=== PATIENT | female | born 1950 | race Caucasian/White ===

== ENCOUNTER 2017-01-24 07:41 | Inpatient (IN) | payer MEDICARE, BC, OTHER ==
--- NOTE | ~2017-01-24 | DS ---
Discharge Summary [facility] [address] [place]. [address] NAME: UMM ROSA : 50 STATUS : DIS Tani PAT#: [id number] AGE: 66 ADM/REG DATE : 01/24/17 MR#: [id number] REPORT SERV DATE: 01/27/17 DICTATED BY: SOLITARIO MARIA DATE: 01/26/17 REPORT STATUS : Draft TRANSCRIBED BY: MODL DATE: 01/26/17 ADMISSION DATE: 01/24/2017 DISCHARGE DATE: 01/26/2017 DISCHARGE DIAGNOSES: 1. Acute on chronic systolic heart failure with ejection fraction 40%. 2. Acute chronic obstructive pulmonary disease exacerbation in the setting of continued tobacco use of 1-2 packs per day. 3. Anemia and thrombocytopenia that is stable. 4. Diabetes type 2, hemoglobin A1c 6.2. 5. Hypertension. 6. Chronic pain syndrome, lumbago and cervicalgia with recent outpatient workup by Dr. Diaz to follow up with him. 7. Diabetes type 2, has neuropathy attached to it as well. 8. Pneumonia has been ruled out. DISCHARGE MEDICATIONS: Aspirin 81 mg daily; Lipitor 40 mg at bedtime; Bumex 1 mg p.o. twice a day, prescription written for this, this is an increased dose; Coreg 6.25 mg twice a day; doxycycline 100 mg twice a day for three more days; Zantac 300 mg daily; gabapentin 300 mg three times a day; Lantus insulin 10 units subcutaneously at bedtime; Imdur ER 120 mg daily; lisinopril 20 mg daily, prescription written; Ativan 1 mg twice a day; MS Contin sustained release 15 mg twice a day; Prilosec 40 mg daily; Paxil 40 mg daily; Klor-Con 20 mEq daily; Glucophage 1000 mg twice a day; Ventolin albuterol inhaler 1 to 2 puffs every four hours p.r.n. for shortness of breath; prednisone 40 mg daily for three more days, prescription written for this; Percocet 10/325 one tablet every six hours p.r.n. for pain; Phenergan 25 mg every 12 hours p.r.n. for nausea; Plavix 75 mg daily; nitroglycerin sublingual tablets 0.4 mg p.r.n. for chest pain. HISTORY OF PRESENT ILLNESS: This is a 66-year-old white female who presented to [facility] Emergency Room with complaints of shortness of breath and neck pain. Please see initial H and P of Dr. Naldo Owens as patient was admitted to Hospitalist Service for further evaluation and treatment. Initially, lab work was ordered and followed. She was placed on empiric antibiotic therapy for concern of pneumonia and she was monitored closely. HOSPITAL COURSE: I began seeing the patient the following day on 01/25/2017 where in review of lab work, white blood cells dropped to 5. She had a procalcitonin level of less than 0.05 and she had been afebrile. She was feeling a little better, still complaining of some neck and back pain. Her antibiotics were deescalated. Her steroids were weaned. She was counseled on smoking cessation. Her lisinopril dosage was increased as she did have some higher blood pressures in the 160 systolically and a BNP lab was checked that day came back elevated at 1124. Her diuretic dose was increased to Bumex 1 mg twice a day and she began to improve in regard to her shortness of breath and has diuresed and her kidney function has remained stable. Reviewing previous records, last echocardiogram in 11/22/2016 showed ejection fraction of 40% which is a slight decrease from her prior echoes, EF of 45%, and it also showed some moderate mitral regurg. Further testing revealed negative urine Strep. Urine Legionella was negative. Blood cultures were negative as well. So given her clinical Discharge Summary [address] [address] NAME: UMM ROSA MARIA DEL CARMEN : 50 STATUS : DIS Tani PAT#: [id number] AGE: 66 ADM/REG DATE : 01/24/17 MR#: [id number] REPORT SERV DATE: 01/27/17 DICTATED BY: SOLITARIO MARIA DATE: 01/26/17 REPORT STATUS : Draft TRANSCRIBED BY: MODL DATE: 01/26/17 improvement on 01/26, she was felt safe for discharge home with the medication adjustments as described above. She will need to follow up with her dental surgeon, Dr. Mooney in 10-14 days. Followup with her primary care in three days. I have advised her to recheck a CBC and BMP at that time and as of this dictation, there is a Hemoccult that is pending and if it is positive, we will establish a GI outpatient followup for this patient as well. Also further review of her orthostatics were within normal limits and she ambulated in the hallway on room air, was 91-92%. She states that she was having some hypoglycemic episodes at home and had not been taking her insulin. So as stated above we have decreased that overall Lantus to 10 units a day and I have instructed her to take it at a lower dose. The patient is in agreement with this plan going forward. She will also reschedule her followup with Dr. Diaz as apparently the appointment for followup with him was today. Questions were answered at bedside. Please note that greater than 30 minutes was spent on this discharge for medication teaching, followup planning, and further disposition. CSC/MODL Solitario Maria NP / [id number] CC: Naldo Owens MD
--- NOTE | ~2017-01-24 | HP ---
History And Physical [place] [id number] [facility] [place]. [address] NAME: UMM ROSA : 50 STATUS : ADM Tani PAT#: [id number] AGE: 66 ADM/REG DATE : 01/24/17 MR#: [id number] REPORT SERV DATE: 01/24/17 DICTATED BY: BEATRICE DE LOS SANTOS DATE: 01/24/17 REPORT STATUS : Draft TRANSCRIBED BY: MODL DATE: 01/24/17 DATE OF ADMISSION: 01/24/2017 HISTORY OF PRESENTING ILLNESS: The patient is a 66-year-old female with a history of presumable COPD, hypertension, diabetes type 2, coronary artery disease, status post stent placement, who presented to the emergency room with a complaint of shortness of breath. Of note, limited history gotten from the patient as she was very lethargic at the time of my examination, however, further history obtained from the [employer] and discussion with ED physician. Briefly, upon presentation to the emergency room, the patient was complaining of severe neck pain, also shortness of breath. Preliminary workup included an ABG which noted significant hypercapnia. Repeat ABG showed some improvement in her hypercapnia. At the time of my interview, the patient stated that yesterday, she had been in severe pain, however, she was feeling at her baseline respiratory status. She said she had several imaging and was evaluated, not clear which physician evaluated, however, she states that she did get an MRI and the conclusion was that she would need further surgery for her neck pain. At this point, I am unable to corroborate that story. However, she states that her shortness of breath began last night, states that upon awakening this morning, it was worse, so she decided to present to the emergency room. Also in the emergency room, workup also included a chest x-ray, which noted some infiltrates in the lower right lung field concerning for pneumonia. The patient was subsequently admitted for observation on the Hospitalist Service. I was unable to perform a review of system as the patient was very lethargic and was sleeping at the time of my evaluation. PAST MEDICAL HISTORY: 1. Coronary artery disease, status post drug-eluting stent placed in 03/2016. 2. Hypertension. 3. Diabetes. 4. Anxiety. 5. Chronic pain. 6. History of chronic systolic heart failure. PAST SURGICAL HISTORY: 1. Cholecystectomy. 2. Hysterectomy. 3. Neck and back surgery. FAMILY HISTORY: Significant for coronary artery disease. SOCIAL HISTORY: The patient reports that she started smoking about two years ago, smokes about one-half packs per day. ALLERGIES: THE PATIENT IS ALLERGIC TO CODEINE, DEMEROL, IV CONTRAST, MEPERIDINE, NALBUPHINE, SULFA, AND CODEINE. History And Physical [address] [address] NAME: UMM ROSA : 50 STATUS : ADM Tani PAT#: [id number] AGE: 66 ADM/REG DATE : 01/24/17 MR#: [id number] REPORT SERV DATE: 01/24/17 DICTATED BY: BEATRICE DE LOS SANTOS DATE: 01/24/17 REPORT STATUS : Draft TRANSCRIBED BY: UMM DATE: 01/24/17 MEDICATIONS: Home medications were reviewed and all medications were continued. PHYSICAL EXAMINATION: VITAL SIGNS: On presentation, blood pressure 187/94 with a pulse of 81, respirations 22, O2 saturation 97% on room air. GENERAL: The patient lying in bed, appears very lethargic with normal respiratory effort. HEENT: Normocephalic, atraumatic. Extraocular motors intact. Oral mucosa dry. NECK: Trachea midline and symmetric. No thyromegaly noted. CHEST: Nontender to palpation. CARDIOVASCULAR: Regular rate and rhythm, S1, S2. No murmurs, rubs, or gallops. LUNGS: Normal respiratory effort noted, decreased breath sound on the right lower lung lobe. ABDOMEN: Midline scar noted, appears well healed. Positive bowel sounds. Nontender. Nondistended. No masses palpated. EXTREMITIES: No cyanosis. No clubbing. No edema. NEURO: The patient was alert and oriented, however, appeared very lethargic. LABORATORY DATA: WBC 12.6, hemoglobin 9.2, hematocrit 31.2 with an MCV of 81.5. Sodium 147, potassium 4.3, chloride 106, bicarb 32, BUN 14, creatinine 0.75 with a GFR of 83, glucose 130. IMAGING: Chest radiograph impression: Bibasilar subsegmental atelectasis with slight volume loss in the right lung, stable thoracic spine DJD. ASSESSMENT AND PLAN: 1. Right community acquired pneumonia, imaging concerning for right lower lobe new infiltrate, placed the patient on azithromycin and Rocephin. 2. Chronic obstructive pulmonary disease exacerbation. We will start the patient on 40 mg IV Solu-Medrol, DuoNeb, supplemental oxygen. 3. Heart failure with reduced EF, last EF 40%. The patient currently appears euvolemic on exam. We will place patient on fluid restriction. 4. Hypertension, uncontrolled, we will restart patient on home medications and titrate as necessary. 5. Diabetes type 2, recent A1c not known, her last A1c is 6.3, however, on her home medication, the patient is currently on management for diabetes with metformin and glargine insulin. PLAN: 1. We will check hemoglobin A1c. We will continue her home glargine, will discontinue metformin, place patient on NovoLog 5 units premeal t.i.d., and level 2 sliding scale. 2. Coronary artery disease, status post stent placement. We will continue home medication. The patient already on high-intensity statin therapy. 3. Chronic pain, we will continue home medications. 4. The patient's code status will remain full at this time. 5. DVT prophylaxis will be with subcu heparin. History And Physical [address] [address] NAME: UMM ROSA : 50 STATUS : ADM Tani PAT#: [id number] AGE: 66 ADM/REG DATE : 01/24/17 MR#: [id number] REPORT SERV DATE: 01/24/17 DICTATED BY: BEATRICE DE LOS SANTOS DATE: 01/24/17 REPORT STATUS : Draft TRANSCRIBED BY: UMM DATE: 01/24/17 LUIS/UMM Beatrice De Los Santos MD / [id number] CC: Beatrice De Los Santos MD
[~2017-01-24 07:41] MED LIST: *UNABLE1; ASAB PO; ASABAYER PO; ATV1 PO; BLOOD THINNER PO; BP MEDICATION; BRILINTA90 MG PO; BUM1 PO; CELEXA40 MG PO; CENTRUM PO; CIP2 PO; CITALOPRAM PO; COREG25 PO; COREG6 PO; DSS PO; EFFIENT10 PO; EMBEDA1 CAP PO; GLIPIZIDE PO; GLUCOPHAGE1000 MG PO; GLUCOTRO10 PO; HALF81 PO; HYDROCHLOROT25 MG PO; IMDUR120 PO; INHALER RX; ISORDIL10 PO; KLOR-CON M2020 MEQ PO; L40 PO; LANTUS SC; LANTUSCART SC; LEVAQUIN750 MG PO; LIPITOR20 PO; LIPITOR40 PO; LISINOPRIL40 MG PO; LYRICA50 PO; METFORMIN PO; MSCONT15 PO; NEUR100 PO; NEUR300 PO; NEXIUM40 PO; NITROSTAT0.4 MG SL; PERCOCET 10/3251 TAB PO; PERCOCET1 TA4 PO; PLAVIX PO; PR25 PO; PRAVAC PO; PREM625 PO; PRILOSEC40 MG PO; PRIN10 PO; PRIN20 PO; PROZAC PO; SUCR PO; VASOTEC5 PO; VENTOLIN HFA INH; ZANTAC300 MG PO; ZOFRAN4 PO; [UNRECOGNIZED DRUG - REMARK] PO
[2017-01-24 08:04] LABS: BASOPHILS 0.2 %; BASOPHILS ABSOLUTE 0.02 10/3/uL (0.0-0.16); EOSINOPHILS 0.5 %; EOSINOPHILS ABSOLUTE 0.06 10/3/uL (0.0-0.53); ER CBC TAT 0 Hrs 13 Mins; HEMATOCRIT 31.2 % (36.0-48.0); HEMOGLOBIN 9.2 g/dL (12.0-16.0); IMMATURE GRANULOCYTES 0.2 %; IMMATURE GRANULOCYTES ABSOLUTE 0.03 10/3/uL (0.0-0.11); LYMPHOCYTES 18.1 %; LYMPHOCYTES ABSOLUTE 2.27 10/3/uL (0.67-4.30); MEAN CORPUS HGB CONC 29.5 g/dL (32.0-36.0); MEAN CORPUSCULAR VOLUME 81.5 fL (80-100); MONOCYTES 6.7 %; MONOCYTES ABSOLUTE 0.84 10/3/uL (0.21-1.20); NEUTROPHILS 74.3 %; NEUTROPHILS ABSOLUTE 9.35 10/3/uL (2.02-8.40); PLATELET COUNT 163 10/3/uL (150-400); RBC DISTRIBUTION WIDTH 17.1 % (12.0-16.0); RED CELL COUNT 3.83 10/6/uL (4.0-5.6); WHITE BLOOD CELLS 12.6 10/3/uL (4.5-10.5)
[2017-01-24 08:05] LABS: MANUAL DIFF NO %
[2017-01-24 08:08] LABS: INTERNATIONAL NORMAL RATI 1.1 UNITS (-); PARTIAL THROMBO TIME 25.7 SEC (22.5-37.2); PROTIME (NOT ORD) 13.8 SEC (12.0-14.5)
[2017-01-24 08:15] LABS: INFLUENZA A SCREEN NEGATIVE (NEGATIVE); INFLUENZA B SCREEN NEGATIVE (NEGATIVE)
[2017-01-24 08:17] LABS: ALBUMIN 3.2 G/DL (3.5-5.0); CALCIUM, SERUM 8.8 MG/DL (8.5-10.4); CHLORIDE, SERUM 106 MMOL/L (96-112); CO2 (CARBON DIOXIDE) 32 MMOL/L (24-34); CREATININE 0.75 MG/DL (0.55-1.02); GFR AFRICAN AMERICAN 96 ML/MIN (>=60); GFR NON AFRICAN AMERICAN 83 ML/MIN (>=60); GLUCOSE, SERUM 130 MG/DL (60-99); POTASSIUM, SERUM 4.3 MMOL/L (3.5-5.3); SGOT(AST) 48 U/L (5-40); SGPT(ALT) 47 U/L (5-65)
[2017-01-24 08:19] LABS: ALKALINE PHOSPHATASE 142 U/L (45-117); BUN (BLOOD UREA NITROGEN) 14 MG/DL (6-23); GLOBULIN 3.3 G/DL (2.5-4.1); SODIUM, SERUM 147 MMOL/L (135-148); TOTAL BILIRUBIN 0.3 MG/DL (0-1.2); TOTAL PROTEIN 6.5 G/DL (6.0-8.5); TROPONIN I 0.06 NG/ML (<0.05)
[2017-01-24 08:30] LABS: ANISOCYTOSIS 1+ (5-10/OIF) (0-5/OIF); PLATELET ESTIMATE ADQ (ADEQUATE)
[2017-01-24] MEDS ORDERED: HALF81 PO (09:14)
[2017-01-24] MEDS ORDERED: NEUR300 PO (09:14)
[2017-01-24] MEDS ORDERED: PERCOCET 10/3251 TAB PO (09:14)
[2017-01-24] MEDS ORDERED: BUM1 PO (09:15)
[2017-01-24] MEDS ORDERED: MSCONT15 PO (09:15)
[2017-01-24] MEDS ORDERED: PR25 PO (09:15)
[2017-01-24] MEDS ORDERED: LIPITOR40 PO (09:15)
[2017-01-24] MEDS ORDERED: COREG6 PO (09:15)
[2017-01-24] MEDS ORDERED: PLAVIX PO (09:16)
[2017-01-24] MEDS ORDERED: IMDUR120 PO (09:16)
[2017-01-24] MEDS ORDERED: KLOR-CON M2020 MEQ PO (09:16)
[2017-01-24] MEDS ORDERED: PRIN20 PO (09:16)
[2017-01-24] MEDS ORDERED: LANTUS SC (09:16)
[2017-01-24] MEDS ORDERED: ZANTAC300 MG PO (09:17)
[2017-01-24] MEDS ORDERED: ATV1 PO (09:17)
[2017-01-24] MEDS ORDERED: NITROSTAT0.4 MG SL (09:17)
[2017-01-24] MEDS ORDERED: GLUCOPHAGE1000 MG PO (09:17)
[2017-01-24] MEDS ORDERED: PRILOSEC40 MG PO (09:17)
[2017-01-24] MEDS ORDERED: PAXIL40 MG PO (09:18)
[2017-01-24] MEDS ORDERED: VENTOLIN HFA INH (09:18)
[2017-01-25 04:42] LABS: BASOPHILS 0.2 %; BASOPHILS ABSOLUTE 0.01 10/3/uL (0.0-0.16); EOSINOPHILS 0.2 %; EOSINOPHILS ABSOLUTE 0.01 10/3/uL (0.0-0.53); HEMATOCRIT 26.1 % (36.0-48.0); HEMOGLOBIN 8.1 g/dL (12.0-16.0); IMMATURE GRANULOCYTES 0.2 %; IMMATURE GRANULOCYTES ABSOLUTE 0.01 10/3/uL (0.0-0.11); LYMPHOCYTES 12.7 %; LYMPHOCYTES ABSOLUTE 0.64 10/3/uL (0.67-4.30); MANUAL DIFF NO %; MEAN CORPUSCULAR VOLUME 80.6 fL (80-100); MONOCYTES ABSOLUTE 0.05 10/3/uL (0.21-1.20); NEUTROPHILS 85.7 %; NEUTROPHILS ABSOLUTE 4.32 10/3/uL (2.02-8.40); PLATELET COUNT 76 10/3/uL (150-400); RED CELL COUNT 3.24 10/6/uL (4.0-5.6)
[2017-01-25 04:55] LABS: ALKALINE PHOSPHATASE 138 U/L (45-117); CALCIUM, SERUM 8.6 MG/DL (8.5-10.4); CHLORIDE, SERUM 106 MMOL/L (96-112); CO2 (CARBON DIOXIDE) 28 MMOL/L (24-34); CREATININE 0.71 MG/DL (0.55-1.02); GFR AFRICAN AMERICAN 103 ML/MIN (>=60); GFR NON AFRICAN AMERICAN 89 ML/MIN (>=60); GLOBULIN 3.1 G/DL (2.5-4.1); GLUCOSE, SERUM 154 MG/DL (60-99); POTASSIUM, SERUM 4.4 MMOL/L (3.5-5.3); SGOT(AST) 20 U/L (5-40); SGPT(ALT) 34 U/L (5-65); SODIUM, SERUM 144 MMOL/L (135-148); TOTAL BILIRUBIN 0.6 MG/DL (0-1.2); TOTAL PROTEIN 6.1 G/DL (6.0-8.5)
[2017-01-25 05:02] LABS: BUN (BLOOD UREA NITROGEN) 20 MG/DL (6-23)
[2017-01-25 05:03] LABS: ANISOCYTOSIS 1+ (5-10/OIF) (0-5/OIF); HYPOCHROMIA 1+ (3-10/OIF) (0-2/OIF); MACROCYTES 1+ (5-10/OIF) (0-5/OIF); PLATELET ESTIMATE DEC (ADEQUATE)
[2017-01-25 12:43] LABS: ULTRASENSITIVE TSH 0.355 MCIU/ML (0.358-3.740)
[2017-01-25 12:50] LABS: B NATRIURETIC PEPTIDE (BNP) 1124.1 PG/ML (< 100.0)
[2017-01-25 14:39] LABS: HEMOGLOBIN 8.9 g/dL (12.0-16.0)
[2017-01-25 14:40] LABS: HEMATOCRIT 29.3 % (36.0-48.0)
[2017-01-26 04:04] LABS: BUN (BLOOD UREA NITROGEN) 22 MG/DL (6-23); CALCIUM, SERUM 8.6 MG/DL (8.5-10.4); CHLORIDE, SERUM 106 MMOL/L (96-112); CREATININE 0.81 MG/DL (0.55-1.02); GFR AFRICAN AMERICAN 88 ML/MIN (>=60); GFR NON AFRICAN AMERICAN 76 ML/MIN (>=60); POTASSIUM, SERUM 3.6 MMOL/L (3.5-5.3); SODIUM, SERUM 148 MMOL/L (135-148)
[2017-01-26 04:05] LABS: CO2 (CARBON DIOXIDE) 33 MMOL/L (24-34); GLUCOSE, SERUM 74 MG/DL (60-99)
[2017-01-26 04:06] LABS: BASOPHILS 0.1 %; BASOPHILS ABSOLUTE 0.01 10/3/uL (0.0-0.16); EOSINOPHILS 1.3 %; HEMATOCRIT 28.7 % (36.0-48.0); HEMOGLOBIN 8.7 g/dL (12.0-16.0); IMMATURE GRANULOCYTES 0.1 %; IMMATURE GRANULOCYTES ABSOLUTE 0.01 10/3/uL (0.0-0.11); LYMPHOCYTES 38.6 %; MANUAL DIFF NO %; MEAN CORPUS HGB CONC 30.3 g/dL (32.0-36.0); MEAN CORPUSCULAR HEMOGLOB 24.4 pg (26.0-34.0); MEAN CORPUSCULAR VOLUME 80.4 fL (80-100); NEUTROPHILS 51.9 %; PLATELET COUNT 152 10/3/uL (150-400); RBC DISTRIBUTION WIDTH 16.8 % (12.0-16.0); RED CELL COUNT 3.57 10/6/uL (4.0-5.6); WHITE BLOOD CELLS 7.5 10/3/uL (4.5-10.5)
[2017-01-26 04:33] LABS: GIANT PLATELET FEW; PLATELET ESTIMATE ADQ (ADEQUATE)
[2017-01-26 04:34] LABS: RBC MORPHOLOGY NORM (NORMAL)
[2017-01-26 07:46] LABS: ASCORBIC ACID (UR NOT ORDER) NEG (NEG); BILIRUBIN, URINE NEGATIVE (NEG); KETONE, URINE NEGATIVE (NEG); LEUKOCYTE ESTERASE(NOT OR NEG (NEG); WBC (NOT ORDERED) (RFLEX) 3 (0-5)
[2017-01-26 08:10] LABS: GLYCOHEMOGLOBIN (HbA1c) 6.2 % (4.7-6.1)
[2017-01-26 15:43] LABS: HEMOGLOBIN 9.8 g/dL (12.0-16.0)
[2017-01-26] MEDS ORDERED: VIBRATAB100 MG PO (17:07)
[2017-01-26] MEDS ORDERED: P20 PO (17:17)
[2017-04-20] MEDS ORDERED: NEUR600 PO (16:47)
[2017-04-21] MEDS ORDERED: LANTUSCART SC (10:01)
[2017-04-21] MEDS ORDERED: VENTOLIN HFA INH (10:02)
[2017-04-26] MEDS ORDERED: FLEX PO (14:46)
[2017-06-08] MEDS ORDERED: PERCOCET 10/3251 TAB PO (15:55)
[2017-06-08] MEDS ORDERED: FLEX PO ×2 (15:56→15:58)
== END 2017-01-26 18:09 | disposition home or self-care (01) | DRG 292 ==
LOC: ER 07:41 → CDU1 10:17
PROVIDERS: Hospitalist; Nurse Practitioner Family
DX: I11.0 Hypertensive heart disease with heart failure (principal); J44.1 Chronic obstructive pulmonary disease with (acute) exacerbation; E11.40 Type 2 diabetes mellitus with diabetic neuropathy, unspecified; D69.6 Thrombocytopenia, unspecified; D64.9 Anemia, unspecified; I25.10 Atherosclerotic heart disease of native coronary artery without angina pectoris; G89.4 Chronic pain syndrome; Z79.4 Long term (current) use of insulin; Z95.5 Presence of coronary angioplasty implant and graft; Z88.2 Allergy status to sulfonamides; Z88.5 Allergy status to narcotic agent; Z91.041 Radiographic dye allergy status; I50.23 Acute on chronic systolic (congestive) heart failure
CPT/HCPCS: 36600; 71010; 80048; 80053; 81001; 82272; 82330; 82803; 82947; 82962; 83036; 83880; 84132; 84145; 84295; 84443; 84484; 85014; 85018; 85025; 85610; 85730; 87040; 87070; 87205; 87449; 87804; 93005; 94640; 96365; 96366; 96375; 99285; A9270-GY; J0456; J2920

== ENCOUNTER 2017-01-29 13:58 | Inpatient (IN) | payer MEDICARE, BC, OTHER ==
--- NOTE | ~2017-01-29 | CN ---
Consultation Report [facility] [address] [place]. [address] NAME: UMM ROSA : 50 STATUS : ADM IN PAT#: [id number] AGE: 66 ADM/REG DATE : 01/29/17 MR#: [id number] REPORT SERV DATE: 02/03/17 DICTATED BY: DANY SMITH V. DATE: 02/02/17 REPORT STATUS : Draft TRANSCRIBED BY: MODGrady DATE: 02/02/17 DATE OF CONSULTATION: 02/02/2017 FAMILY PHYSICIAN: Shital Del Angel NP. HISTORY OF PRESENT ILLNESS: This is a 66-year-old female who was admitted to the hospital for neck surgery. At that time, the patient was not able to give me all the information that I need and therefore I am taking what I am dictating at this point from the chart and will check again a little bit later after she seems more responsive to questions. The time right now is 1255 hours, 02/02/2017. A 66-year-old female who was admitted for neck surgery and this has been carried out. The history was that the patient was a pleasant 66-year-old female who had a previous cervical surgery by Dr. Chaz wallis in [address] Diaz has been seeing her in the office and she had progressive worsening problems with the neck pain, upper extremity as well as progressive signs of cervical spondylitic myelopathy consistent with severe spinal cord compression. After discussion of the risks and benefits and failed conservative treatment and progressive neurological decline, she did elect to proceed with a surgical intervention. He was admitting her to the hospital for evaluation by hospitalist, masonry installer, and anticipating significant surgery in her neck. REVIEW OF SYSTEMS: Denied chest pain, shortness of breath, bowel or bladder changes. ALLERGIES: CONTRAST, SULFA, CODEINE, DEMEROL, AND NUBAIN. HOME MEDICATIONS: Albuterol, aspirin, Lipitor, Bumex, Coreg, Plavix, doxycycline, Neurontin, Lantus, Imdur, lisinopril, Activia, Glucophage, MS Contin, multivitamin, nitroglycerin, Prilosec, Percocet, Paxil, potassium, prednisone, Phenergan, and Zantac. PAST MEDICAL HISTORY: Coronary artery disease, hypertension, anxiety, chronic pain, congestive heart failure, and diabetes. PHYSICAL EXAMINATION: GENERAL: In no acute distress on admission. She is alert and oriented. VITAL SIGNS: Blood pressure on this date, 02/02/2017 at 11:30 a.m., was 147/71, pulse 77, respirations 16. VASCULAR: There is no swelling. SPINE: Decreased cervical motion. HEART: Regular rate and rhythm. LUNGS: Clear to auscultation. ABDOMEN: Soft, nontender, with good bowel sounds. IMAGING: Noted by Dr. Diaz that she reviewed MRI scan, she does have significant severe disc disease and stenosis at C3 through C7 with spinal cord compression and presence of myelomalacia. Consultation Report [place] [id number] [facility] [place]. [address] NAME: UMM ROSA : 50 STATUS : ADM IN [facility]#: [id number] AGE: 66 ADM/REG DATE : 01/29/17 MR#: [id number] REPORT SERV DATE: 02/03/17 DICTATED BY: DANY SMITH V. DATE: 02/02/17 REPORT STATUS : Draft TRANSCRIBED BY: UMM DATE: 02/02/17 ASSESSMENT: Cervical disc disease and severe stenosis with spinal cord compression causing myelomalacia and progressive signs of cervical spondylitic myelopathy. PLAN: To be admitted for preoperative workup and the planned surgical intervention. Consent was obtained. At the present time, I anticipate waiting a little longer to check back with and see if she is able to answer any questions, otherwise, I will stay with the information that was given. The procedure she had was on 01/31/2017. PREOPERATIVE DIAGNOSES: Progressive cervical spondylitic myelopathy, C3-6 disc disease and stenosis with spinal cord compression. POSTOPERATIVE DIAGNOSES: Progressive spondylitic myelopathy, C3-6 disc disease and stenosis with spinal cord compression. PROCEDURE: C3 through C6 laminectomy and bilateral foraminotomies, C3-6 posterolateral fusion bilaterally, C3-6 posterior segmental spinal instrumentation using Medtronic lateral mass screws. Had local morselized autograft and then allograft bone matrix, neuromonitoring, and intraoperative O-arm CT scan with computer navigation. Surgeon was Dr. Diaz. At this time, I did not do any further dictation on this lady and may do some later on, and of course, the diagnoses are as noted earlier with this dictation, progressive cervical spondylitic myelopathy, C3-6 disc disease and stenosis with spinal cord compression with the surgery as indicated above. DICTATED BY: [place]/UMM Dany Smith M.D. / [id number] CC: Arturo Diaz, DO Shital Del Angel, SR. MEDIA MANAGER
--- NOTE | ~2017-01-29 | DS ---
Discharge Summary [facility] [address] [place]. [address] NAME: UMM ROSA : 50 STATUS : DIS IN PAT#: [id number] AGE: 66 ADM/REG DATE : 01/29/17 MR#: [id number] REPORT SERV DATE: 02/24/17 DICTATED BY: ARTURO DIAZ DATE: 02/22/17 REPORT STATUS : Draft TRANSCRIBED BY: UMM DATE: 02/22/17 Data Collection from hospitalization DISCHARGE DIAGNOSES: 1. Progressive cervical spondylotic myelopathy. 2. C3-C6 disc disease and stenosis with spinal cord compression. 3. Hypertension. 4. Diabetes. 5. Coronary artery disease. 6. Anxiety. 7. Chronic pain. 8. Congestive heart failure. 9. Former smoker. CONSULTATIONS: Dr. Dany Smith, Dr. Sravan Cope, and Dr. Zeferino Kyle. PROCEDURES PERFORMED: C3-C6 laminectomy and bilateral foraminotomy, C3-C6 posterolateral fusion bilaterally, C3-C6 posterior segmental spinal instrumentation using Medtronic lateral mass screws, local morcellized autograft, allograft bone matrix, neuromonitoring, and intraoperative O arm, CT scan with computer navigation 01/31/2017. PATHOLOGY: Tissue from cervical spine area - benign skeletal muscle and soft tissue with bone and cartilage, medullary bone with bone marrow particles with trilineage hematopoiesis. No metastatic malignancy or lymphoid or plasma cell neoplasm. MEDICATIONS: Aspirin 81 mg daily, Lipitor 40 mg at bedtime, Bumex 1 mg with breakfast and supper, Coreg 6.25 mg twice a day, Plavix 75 mg daily, Colace 100 mg twice a day, Neurontin 300 mg three times a day, Lantus 10 units subcutaneously daily, Imdur 120 mg daily, Prinivil 20 mg every morning, Ativan 1 mg twice a day, Theragran tablets one tablet daily, Prilosec 40 mg daily, Paxil 40 mg at bedtime, MiraLAX powder one packet daily, potassium chloride SR 20 mEq at bedtime, Spiriva one capsule via HandiHaler daily, OxyContin 20 mg twice a day, Mylanta 30 mL as needed, Dulcolax 10-15 mg as needed, Zantac 300 mg daily as needed, Glucophage 1000 mg twice a day, milk of magnesia 30 mL twice a day as needed, Nitrostat 0.4 mg sublingually as needed, Fleet Enema 133 mL per rectum as needed, Catapres 0.1 mg every four hours as needed for systolic blood pressure greater than 170, Roxicodone 10 mg every four hours as needed, and Ventolin 1-2 puffs via inhaler every four hours as needed. CONDITION AT DISCHARGE: Stable. DISPOSITION: The patient was discharged to [facility] on an 1800-calorie diabetic diet with activities as instructed. HOSPITAL COURSE: This is a 66-year-old female who had undergone previous cervical spine surgery in 1992. I had been seeing her in the office, and she had progressively worsening problems with neck pain, upper extremity pain, as well as progressive signs of cervical spondylotic myelopathy consistent with severe spinal cord compression. Treatment options were discussed, and it was elected to proceed with surgical intervention. She was admitted to the hospital for further evaluation and treatment. Discharge Summary [address] [address] NAME: UMM ROSA MARIA DEL CARMEN : 50 STATUS : DIS IN PAT#: [id number] AGE: 66 ADM/REG DATE : 01/29/17 MR#: [id number] REPORT SERV DATE: 02/24/17 DICTATED BY: ARTURO DIAZ DATE: 02/22/17 REPORT STATUS : Draft TRANSCRIBED BY: UMM DATE: 02/22/17 Upon admission, she was seen by Dr. Zeferino Kyle for preoperative cardiac assessment. She does have a history of an old myocardial infarction with LAD and diagonals and drug-eluting stents placed in March of last year. She had been compliant with dual anti-platelet therapy. A followup cardiac catheterization 2 months prior to this admission, she had patent stent sites with mild left circumflex and [id number] RCA, nonobstructive disease. Ejection fraction was approximately 40%. There is ischemic cardiomyopathy. She reported no recent accelerating chest pain or nitroglycerin use. She has had occasional pulmonary congestive symptoms of shortness of breath. Last end-diastolic pressure at cardiac catheterization was 22 mmHg. She is on a diuretic. There was no absolute cardiac contraindication to cervical spine surgery. Her last Plavix and aspirin dose was on 01/27/2017, this was currently on hold until surgery was accomplished. She had no accelerating angina syndrome with recent cardiac catheterization showing no critical disease. EKG was going to be checked as well as a chest x-ray, troponins, CMP, and BNP. The patient was also seen by Dr. Sravan Cope. The patient had recently been hospitalized for exacerbation of congestive heart failure. She does have systolic and diastolic congestive heart failure with an ejection fraction of 40% and left ventricular end-diastolic pressure of 22%. Her swelling was down, her shortness of breath was better, she stopped smoking a week prior to this admission. She considered herself to be in optimal condition for surgery. She has been taking Plavix at home because of previous coronary artery stent. She has had failure of LAD stents in the past, now with 3, having been deployed with early occlusion. She had smoked excessively all of her life but has now quit but states she still wants to have a cigarette now. She does have type 2 diabetes. We were going to restart her insulin, metformin, and sliding scale insulin. Her home hypertension medication was also resumed. On 01/31/2017, she was taken to the operating room where she underwent the above-mentioned procedure. She tolerated this well, and there were no complications. On postop day 1, the patient said the WORD PROCESSOR OPERATOR and MS Contin were not working for pain control. Coreg, Imdur, and lisinopril were continued as well as level 2 sliding scale insulin and Levemir. Protonix and Lipitor were continued. Her Paxil was continued for bipolar disorder. She was complaining of increased pain. She continued to request more pain medication. She was evaluated by Physical Therapy. On the , she was seen by Dr. Dany Smith. The patient has cervical disc disease and severe stenosis with spinal cord compression causing myelomalacia and progressive signs of cervical spondylitic myelopathy. Adjustments were made to her pain regimen; the following day, she said her pain was controlled. We encouraged her to mobilize. She seemed much more alert. She still complained of neck pain as expected. The patient was wanting to go home. It was explained to her that it was not safe for her to go home and that she would need inpatient rehabilitation. A suppository was given as she did have some constipation, MiraLAX was also provided. On the , she had a low-grade fever. She still complained of some pain. She did have a bowel movement. MiraLAX was decreased. Blood pressure control was okay. She continued to ask for pain medication. On the , her pain was well controlled. She appeared more comfortable. Discharge planning was performed. Level 2 sliding scale insulin and Levemir were continued. On 02/08/2017, she was resting, she had less pain. A soft collar was in place. Discharge planning continued. On 02/10/2017, discharge instructions were given. Due to her improved and stable condition, she was discharged to [facility] with the above-stated instructions. Discharge Summary [place] [address] [place]. [address] NAME: UMM ROSA : 50 STATUS : DIS IN PAT#: [id number] AGE: 66 ADM/REG DATE : 01/29/17 MR#: [id number] REPORT SERV DATE: 02/24/17 DICTATED BY: ARTURO DIAZ DATE: 02/22/17 REPORT STATUS : Draft TRANSCRIBED BY: UMM DATE: 02/22/17 Information collected by: Sonam Salazar I submit the above information as my discharge summary. ANDREAS/UMM Arturo Diaz DO / [id number] CC: CHARLI Cannon M.D. James Hoback Jr., M.D. [facility]
--- NOTE | ~2017-01-29 | OP ---
Record Of Operation [facility] [address] [place]. [address] NAME: UMM ROSA : 50 STATUS : ADM IN PAT#: [id number] AGE: 66 ADM/REG DATE : 01/29/17 MR#: [id number] REPORT SERV DATE: 01/31/17 DICTATED BY: ARTURO DIAZ DATE: 01/31/17 REPORT STATUS : Draft TRANSCRIBED BY: MODL DATE: 01/31/17 DATE OF PROCEDURE: 01/31/2017 PREOPERATIVE DIAGNOSIS: Progressive cervical spondylotic myelopathy, C3-6 disk disease and stenosis with spinal cord compression. POSTOPERATIVE DIAGNOSIS: Progressive cervical spondylotic myelopathy, C3-6 disk disease and stenosis with spinal cord compression. PROCEDURE: C3-C6 laminectomy and bilateral foraminotomies. C3-C6 posterolateral fusion bilaterally. C3-C6 posterior segmental spinal instrumentation using Medtronic lateral mass screws. Local morcellized autograft allograft bone matrix, neuromonitoring, and intraoperative O-arm CT scan with computer navigation. SURGEON: Arturo Diaz DO. ANESTHESIA: General. ESTIMATED BLOOD LOSS: 100 mL. COMPLICATIONS: None. INDICATIONS: The patient is a 66-year-old with progressive signs of cervical myelopathy for severe spinal cord compression, failed conservative treatment. After discussion of risks and benefits, elected to proceed with surgery. PROCEDURE IN DETAIL: I identified the patient in the holding area. Consent was obtained. Went to the operating room. Underwent general anesthesia with endotracheal intubation. Prepped and draped in the usual sterile fashion. Operative safety pause was performed and then we proceeded. Midline longitudinal incision made C3-C6 taken down in the fascial layer. Paraspinous muscle subperiosteally elevated. O-arm registration frame placed on spinous process. O-arm brought in for intraoperative CT scan. Computer registration materials verified. Under computer guidance, lateral mass screws from Medtronic were placed C3-C6 bilaterally. O-arm brought back in to verify good placement of instrumentation. A trough was made in the lamina at C3-C6. Final cut through with a queenie bur underlying ligamentum removed with a Kerrison. Lamina removed en bloc for bone graft. Foraminotomies performed C3-C6 with a Kerrison. Rods contoured and cut to the appropriate shape and length, placed over the screws C3-C6 bilaterally. Set screws placed and final tightened. A high-speed decorticating bur used C3-C6 to decorticate the remaining bony surfaces. Irrigation performed. Hemostasis achieved. Local morcellized autograft and allograft bone matrix packed over the decorticated surfaces C3-C6, subfascial drain placed. A gram of vancomycin powder was sprinkled over the surgical wound. Layered closure performed. Sterile dressings applied. The patient was awoken and extubated and taken to the recovery room in stable condition. OPERATIVE FINDINGS: C3-C6 severe stenosis with spinal cord compression. No sustained Record Of Operation [address] [address] NAME: UMM ROSA : 50 STATUS : ADM IN PAT#: [id number] AGE: 66 ADM/REG DATE : 01/29/17 MR#: [id number] REPORT SERV DATE: 01/31/17 DICTATED BY: ARTURO DIAZ DATE: 01/31/17 REPORT STATUS : Draft TRANSCRIBED BY: MODL DATE: 01/31/17 neuromonitoring alerts. There were little to no motor evoked potentials identifiable preoperatively, had improved slightly during surgery but no deficits or changes in a negative direction. ALISHA/LIZETHL Arturo Diaz DO / [id number] CC: DO Shital Tejada NP
--- NOTE | ~2017-01-29 | CN ---
Consultation Report [facility] [address] [place]. [address] NAME: KAMILA ROSA : 50 STATUS : ADM IN PAT#: [id number] AGE: 66 ADM/REG DATE : 01/29/17 MR#: [id number] REPORT SERV DATE: 01/29/17 DICTATED BY: REYES KYLE JR. DATE: 01/29/17 REPORT STATUS : Draft TRANSCRIBED BY: MODGrady DATE: 01/29/17 DATE OF CONSULTATION: 01/29/2017 [facility] [employer]ANING EQUIPMENT: Dr. Dany Mooney. REASON FOR CONSULT: Preoperative cardiac assessment. Cervical spine surgery. HISTORY OF PRESENT ILLNESS: Kamila Rosa is a 66-year-old cigarette smoker. She says she quit one week ago, who presents for cervical spine surgery. She was seen by Dr. Diaz in the office last week. She had her last dose of Plavix and aspirin two days ago. She is status post old TX with LAD and diagonals and drug-eluting stents placed in March of last year. She has been compliant with dual anti-platelet therapy. She had a followup cardiac catheterization two months ago, which showed patent stent sites with mild left circumflex and [id number] RCA nonobstructive disease. Ejection fraction approximately 40%. Ischemic cardiomyopathy. History of hypertension, diabetes mellitus. She reports no recent accelerating chest pain or nitroglycerin use. She has occasional pulmonary congestive symptoms of shortness of breath. Last end-diastolic pressure at cardiac catheterization 22 mmHg. She is on a diuretic. Lab is pending. Chest x-ray pending. EKG pending, etc. ALLERGIES: SHE IS ALLERGIC TO IODINE, SULFA, CODEINE, DEMEROL, NUBAIN. HOME MEDICATION LIST: Reviewed. SOCIAL HISTORY: Long-standing cigarette smoker. No illicit drugs. FAMILY HISTORY: Noncontributory. PHYSICAL EXAMINATION: VITAL SIGNS: Blood pressure 130/70, pulse is 70 and regular, respirations 18, afebrile. HEENT: No xanthelasma. NECK: No JVD at 30 degrees, no thyromegaly, no carotid bruit. LUNGS: Clear to auscultation and percussion. COR: No thrills, heaves. Normal S1 and S2. No gallop. No rub. No murmur. ABD: Soft, nontender, no hepatosplenomegaly, no mass. EXT: Without edema or pulse deficit. MS: Back without spine or costovertebral angle tenderness. NEURO: Symmetric findings. DISCUSSION: 1. There is no absolute cardiac contraindication to cervical spine surgery, plan later in this hospitalization. Her last Plavix and aspirin dose was 01/27/2017. Currently on hold until surgery is accomplished. Consultation Report [address] [place]. [address] NAME: KAMILA ROSA : 50 STATUS : ADM IN [facility]#: [id number] AGE: 66 ADM/REG DATE : 01/29/17 MR#: [id number] REPORT SERV DATE: 01/29/17 DICTATED BY: REYES KYLE JR. DATE: 01/29/17 REPORT STATUS : Draft TRANSCRIBED BY: UMM DATE: 01/29/17 2. No accelerating angina syndromes with recent cardiac catheterization showing no critical disease. Last stent was 10 months ago. Occasional pulmonary congestive symptoms. PLAN: Check EKG, chest x-ray, troponin, CMP, BNP. Further adjustments as necessary. Thank you for this consultation. THERESA/UMM Reyes Kyle Jr., M.D. / [id number] CC: Arturo Diaz, DO Shital Del Angel NP
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
--- NOTE | ~2017-01-29 | HP ---
History And Physical [place] [id number] [facility]. [address] NAME: UMM ROSA : 50 STATUS : ADM IN PAT#: [id number] AGE: 66 ADM/REG DATE : 01/29/17 MR#: [id number] REPORT SERV DATE: 01/31/17 DICTATED BY: ARTURO DIAZ DATE: 01/31/17 REPORT STATUS : Draft TRANSCRIBED BY: UMM DATE: 01/31/17 DATE OF ADMISSION: 01/29/2017 CHIEF COMPLAINT: Neck pain and myelopathy. HISTORY OF PRESENT ILLNESS: The patient is a pleasant 66-year-old female, who has had a previous cervical spine surgery by Dr. Harvey wallis in 1992 approximately. I have been seeing her in the office and she has had progressive worsening problems with neck pain, upper extremity pain as well as progressive signs of cervical spondylotic myelopathy consistent with her severe spinal cord compression. After discussion of risks and benefits and failed conservative treatment and progressive neurologic decline, she does elect to proceed with surgical intervention. I am admitting her to the hospital for evaluation by both the hospitalist as well as Cardiology as she has significant cardiac history. We will obtain preoperative clearance from both prior to proceeding with surgery. REVIEW OF SYSTEMS: She denies chest pain, shortness of breath, and bowel or bladder changes. ALLERGIES: CONTRAST, SULFA, CODEINE, DEMEROL, AND NUBAIN. HOME MEDICATIONS: Include albuterol; aspirin; Lipitor; Bumex; Coreg; Plavix; doxycycline; Neurontin; Lantus; Imdur; lisinopril; Ativan; Glucophage; MS Contin; multivitamin; nitroglycerin; Prilosec; Percocet; Paxil potassium; prednisone; Phenergan; and Zantac. PAST MEDICAL HISTORY: Includes coronary artery disease, hypertension, anxiety, chronic pain, congestive heart failure, and diabetes. FAMILY HISTORY: Noncontributory. PHYSICAL EXAMINATION: GENERAL: The patient is in no acute distress. PSYCHIATRIC: Alert and oriented x3. Normal mood and affect. Gait is somewhat unsteady. VASCULAR: No extremity swelling. SPINE: Decreased cervical motion. HEART: Regular rate and rhythm. LUNGS: Clear to auscultation. ABDOMEN: Soft, nontender, nondistended with good bowel sounds. BREASTS: Deferred. RECTAL: Deferred. NEUROLOGIC: The patient does have an altered gait pattern. Some diffuse sensation to bilateral upper extremities to light touch. UPPER EXTREMITIES: Grossly intact for strength. IMAGING: I have reviewed the MRI scan. She does have rather severe disk disease and stenosis, C3 through C7 with spinal cord compression and presence of myelomalacia. ASSESSMENT: Cervical disk disease and severe stenosis with spinal cord compression causing History And Physical [address] [address] NAME: UMM ROSA : 50 STATUS : ADM IN LOCATED [facility]IN [facility]#: [id number] AGE: 66 ADM/REG DATE : 01/29/17 MR#: [id number] REPORT SERV DATE: 01/31/17 DICTATED BY: ARTURO DIAZ DATE: 01/31/17 REPORT STATUS : Draft TRANSCRIBED BY: UMM DATE: 01/31/17 myelomalacia and progressive signs of cervical spondylotic myelopathy. PLAN: The patient is being admitted for preoperative workup and for planned surgical intervention. Consent was obtained. All questions are answered and she will be ready to proceed after she obtains both general medical as well as cardiac clearance for surgery. ALISHA/UMM Arturo Diaz DO / [id number] CC: DO Shital Tejada NP
[~2017-01-29 13:58] MED LIST changes: +P20 PO; +PAXIL40 MG PO; +VIBRATAB100 MG PO
[2017-01-29 16:16] LABS: BASOPHILS 0.2 %; BASOPHILS ABSOLUTE 0.02 10/3/uL (0.0-0.16); EOSINOPHILS 3.9 %; EOSINOPHILS ABSOLUTE 0.32 10/3/uL (0.0-0.53); HEMATOCRIT 29.6 % (36.0-48.0); HEMOGLOBIN 8.9 g/dL (12.0-16.0); LYMPHOCYTES 34.5 %; LYMPHOCYTES ABSOLUTE 2.87 10/3/uL (0.67-4.30); MEAN CORPUS HGB CONC 30.1 g/dL (32.0-36.0); MEAN CORPUSCULAR HEMOGLOB 24.1 pg (26.0-34.0); MONOCYTES ABSOLUTE 0.58 10/3/uL (0.21-1.20); NEUTROPHILS 54.4 %; NEUTROPHILS ABSOLUTE 4.52 10/3/uL (2.02-8.40); PLATELET COUNT 179 10/3/uL (150-400); RBC DISTRIBUTION WIDTH 17.2 % (12.0-16.0); WHITE BLOOD CELLS 8.3 10/3/uL (4.5-10.5)
[2017-01-29 16:18] LABS: MANUAL DIFF NO %
[2017-01-29 16:21] LABS: BUN (BLOOD UREA NITROGEN) 21 MG/DL (6-23); CHLORIDE, SERUM 102 MMOL/L (96-112); CO2 (CARBON DIOXIDE) 37 MMOL/L (24-34); CREATININE 1.04 MG/DL (0.55-1.02); GFR AFRICAN AMERICAN 65 ML/MIN (>=60); GFR NON AFRICAN AMERICAN 56 ML/MIN (>=60); GLOBULIN 2.9 G/DL (2.5-4.1); POTASSIUM, SERUM 3.7 MMOL/L (3.5-5.3); SGOT(AST) 11 U/L (5-40); SGPT(ALT) 20 U/L (5-65); SODIUM, SERUM 143 MMOL/L (135-148); TOTAL BILIRUBIN 0.2 MG/DL (0-1.2); TOTAL PROTEIN 5.9 G/DL (6.0-8.5)
[2017-01-29 16:22] LABS: ALKALINE PHOSPHATASE 109 U/L (45-117); GLUCOSE, SERUM 143 MG/DL (60-99)
[2017-01-29 17:01] LABS: ANISOCYTOSIS 1+ (5-10/OIF) (0-5/OIF); HYPOCHROMIA 1+ (3-10/OIF) (0-2/OIF); MACROCYTES 1+ (5-10/OIF) (0-5/OIF); MICROCYTES 1+ (5-10/OIF) (0-5/OIF); OVALOCYTES 1+ (3-10/OIF) (0-2/OIF); PLATELET ESTIMATE ADQ (ADEQUATE); TEARDROP SHAPED RBCS OCC (0-2/OIF)
[2017-01-29] MEDS ORDERED: NICOTINE PATCH (17:17)
[2017-01-29] MEDS ORDERED: MULTIVIT/MIN PO (17:17)
[2017-01-29 19:33] LABS: TROPONIN I <0.02 NG/ML (<0.05)
[2017-01-31 07:03] LABS: HEMATOCRIT 31.9 % (36.0-48.0); HEMOGLOBIN 9.6 g/dL (12.0-16.0)
[2017-02-01 07:59] LABS: POTASSIUM, SERUM 3.7 MMOL/L (3.5-5.3)
[2017-02-01 16:04] LABS: ASCORBIC ACID (UR NOT ORDER) NEG (NEG); BILIRUBIN, URINE NEGATIVE (NEG); KETONE, URINE NEGATIVE (NEG); LEUKOCYTE ESTERASE(NOT OR NEG (NEG); WBC (NOT ORDERED) (RFLEX) < 1 (0-5)
[2017-02-01 17:57] LABS: FOLATE 52.6 NG/ML (>5.2)
[2017-02-02 06:14] LABS: CHLORIDE, SERUM 106 MMOL/L (96-112); GFR AFRICAN AMERICAN 105 ML/MIN (>=60); GFR NON AFRICAN AMERICAN 90 ML/MIN (>=60); SODIUM, SERUM 143 MMOL/L (135-148)
[2017-02-02 06:18] LABS: BUN (BLOOD UREA NITROGEN) 8 MG/DL (6-23); CO2 (CARBON DIOXIDE) 25 MMOL/L (24-34); GLUCOSE, SERUM 87 MG/DL (60-99); POTASSIUM, SERUM 3.8 MMOL/L (3.5-5.3)
[2017-02-02 08:25] LABS: BASOPHILS 0.1 %; BASOPHILS ABSOLUTE 0.01 10/3/uL (0.0-0.16); EOSINOPHILS 1.1 %; EOSINOPHILS ABSOLUTE 0.13 10/3/uL (0.0-0.53); HEMOGLOBIN 8.5 g/dL (12.0-16.0); IMMATURE GRANULOCYTES 0.4 %; IMMATURE GRANULOCYTES ABSOLUTE 0.05 10/3/uL (0.0-0.11); LYMPHOCYTES 13.9 %; LYMPHOCYTES ABSOLUTE 1.67 10/3/uL (0.67-4.30); MEAN CORPUS HGB CONC 29.9 g/dL (32.0-36.0); MEAN CORPUSCULAR VOLUME 80.2 fL (80-100); MONOCYTES 10.5 %; MONOCYTES ABSOLUTE 1.26 10/3/uL (0.21-1.20); PLATELET COUNT 129 10/3/uL (150-400); RBC DISTRIBUTION WIDTH 17.1 % (12.0-16.0); RED CELL COUNT 3.54 10/6/uL (4.0-5.6)
[2017-02-02 08:27] LABS: HEMATOCRIT 28.4 % (36.0-48.0); MANUAL DIFF NO %
[2017-02-02 09:32] LABS: BAND NEUTROPHILS 7 %; EOSINOPHILS 1 %; EOSINOPHILS ABSOLUTE (CALC) 0.12 10/3/uL (0.0-0.53); LYMPHOCYTES 13 %; LYMPHOCYTES ABSOLUTE (CALC) 1.56 10/3/uL (0.67-4.30); MONOCYTES 11 %; MONOCYTES ABSOLUTE (CALC) 1.32 10/3/uL (0.21-1.20); PLATELET ESTIMATE SLT DEC (ADEQUATE); POLYCHROMASIA 1+ (2-5/OIF) (0-1/OIF); SEGMENTED NEUTROPHIL (0) 68 %; TOTAL NUCLEATED CELLS 100
[2017-02-05 06:42] LABS: BASOPHILS 0.2 %; BASOPHILS ABSOLUTE 0.01 10/3/uL (0.0-0.16); EOSINOPHILS 2.1 %; EOSINOPHILS ABSOLUTE 0.14 10/3/uL (0.0-0.53); HEMATOCRIT 28.1 % (36.0-48.0); HEMOGLOBIN 8.7 g/dL (12.0-16.0); IMMATURE GRANULOCYTES 0.2 %; IMMATURE GRANULOCYTES ABSOLUTE 0.01 10/3/uL (0.0-0.11); LYMPHOCYTES 20.2 %; LYMPHOCYTES ABSOLUTE 1.32 10/3/uL (0.67-4.30); MEAN CORPUSCULAR HEMOGLOB 24.4 pg (26.0-34.0); MEAN CORPUSCULAR VOLUME 78.9 fL (80-100); MONOCYTES 11.6 %; MONOCYTES ABSOLUTE 0.76 10/3/uL (0.21-1.20); NEUTROPHILS 65.7 %; PLATELET COUNT 140 10/3/uL (150-400); RBC DISTRIBUTION WIDTH 17.4 % (12.0-16.0); RED CELL COUNT 3.56 10/6/uL (4.0-5.6)
[2017-02-05 06:46] LABS: MANUAL DIFF NO %; WHITE BLOOD CELLS 6.5 10/3/uL (4.5-10.5)
[2017-02-05 06:55] LABS: BUN (BLOOD UREA NITROGEN) 12 MG/DL (6-23); CHLORIDE, SERUM 99 MMOL/L (96-112); CO2 (CARBON DIOXIDE) 34 MMOL/L (24-34); CREATININE 0.63 MG/DL (0.55-1.02); GFR AFRICAN AMERICAN 108 ML/MIN (>=60); GFR NON AFRICAN AMERICAN 93 ML/MIN (>=60); GLUCOSE, SERUM 149 MG/DL (60-99); POTASSIUM, SERUM 3.1 MMOL/L (3.5-5.3); SODIUM, SERUM 137 MMOL/L (135-148)
[2017-02-05 07:10] LABS: ANISOCYTOSIS 1+ (5-10/OIF) (0-5/OIF); PLATELET ESTIMATE SLT DEC (ADEQUATE)
[2017-02-05 07:11] LABS: OVALOCYTES 1+ (3-10/OIF) (0-2/OIF); POLYCHROMASIA 1+ (2-5/OIF) (0-1/OIF)
[2017-02-05 07:36] LABS: PROCALCITONIN <0.05 ng/mL (<0.5)
[2017-02-06 13:21] LABS: BUN (BLOOD UREA NITROGEN) 13 MG/DL (6-23); CALCIUM, SERUM 8.7 MG/DL (8.5-10.4); CHLORIDE, SERUM 97 MMOL/L (96-112); CO2 (CARBON DIOXIDE) 31 MMOL/L (24-34); CREATININE 0.66 MG/DL (0.55-1.02); GFR AFRICAN AMERICAN 107 ML/MIN (>=60); GFR NON AFRICAN AMERICAN 92 ML/MIN (>=60); GLUCOSE, SERUM 138 MG/DL (60-99); POTASSIUM, SERUM 3.5 MMOL/L (3.5-5.3); SODIUM, SERUM 136 MMOL/L (135-148)
[2017-02-07 07:12] LABS: BUN (BLOOD UREA NITROGEN) 13 MG/DL (6-23); CHLORIDE, SERUM 101 MMOL/L (96-112); CO2 (CARBON DIOXIDE) 30 MMOL/L (24-34); CREATININE 0.66 MG/DL (0.55-1.02); GFR AFRICAN AMERICAN 107 ML/MIN (>=60); GFR NON AFRICAN AMERICAN 92 ML/MIN (>=60); GLUCOSE, SERUM 113 MG/DL (60-99); POTASSIUM, SERUM 4.2 MMOL/L (3.5-5.3); SODIUM, SERUM 140 MMOL/L (135-148)
[2017-04-20] MEDS ORDERED: NEUR600 PO (16:47)
[2017-04-21] MEDS ORDERED: LANTUSCART SC (10:01)
[2017-04-21] MEDS ORDERED: VENTOLIN HFA INH (10:02)
[2017-04-26] MEDS ORDERED: FLEX PO (14:46)
[2017-06-08] MEDS ORDERED: PERCOCET 10/3251 TAB PO (15:55)
[2017-06-08] MEDS ORDERED: FLEX PO ×2 (15:56→15:58)
== END 2017-02-10 12:40 | DRG 471 ==
LOC: 1SO 13:58
PROVIDERS: Internal Medicine; Nurse Practitioner Gerontology; Orthopaedic Surgery
PROC: 4A11X4G Monitoring of Peripheral Nervous Electrical Activity, Intraoperative, External Approach (ICD-10-PCS; 2017-01-31)
PROC: 8E09XBG Computer Assisted Procedure of Head and Neck Region, With Computerized Tomography (ICD-10-PCS; 2017-01-31)
PROC: 0RG20Z1 (ICD-10-PCS; principal; 2017-01-31 10:45)
DX: M50.122 Cervical disc disorder at C5-C6 level with radiculopathy (principal); G92 Toxic encephalopathy; M47.12 Other spondylosis with myelopathy, cervical region; I50.42 Chronic combined systolic (congestive) and diastolic (congestive) heart failure; I11.0 Hypertensive heart disease with heart failure; I25.5 Ischemic cardiomyopathy; E11.9 Type 2 diabetes mellitus without complications; G89.29 Other chronic pain; E78.5 Hyperlipidemia, unspecified; K21.9 Gastro-esophageal reflux disease without esophagitis; I25.10 Atherosclerotic heart disease of native coronary artery without angina pectoris; F41.9 Anxiety disorder, unspecified; F31.9 Bipolar disorder, unspecified; E87.6 Hypokalemia; T40.2X5A Adverse effect of other opioids, initial encounter; K59.00 Constipation, unspecified; Z79.82 Long term (current) use of aspirin; Z79.02 Long term (current) use of antithrombotics/antiplatelets; Z79.4 Long term (current) use of insulin; Z79.84 Long term (current) use of oral hypoglycemic drugs; Z79.899 Other long term (current) drug therapy; Z87.891 Personal history of nicotine dependence; I25.2 Old myocardial infarction; Z98.61 Coronary angioplasty status; Z88.2 Allergy status to sulfonamides; Z88.5 Allergy status to narcotic agent; Z88.8 Allergy status to other drugs, medicaments and biological substances; Z91.048 Other nonmedicinal substance allergy status
CPT/HCPCS: 36415; 71010; 80048; 80051; 80053; 81001; 82140; 82607; 82746; 82962; 83540; 83880; 84145; 84484; 85014; 85018; 85025; 86850; 86900; 86901; 86920; 87641; 88304; 88311; 93005; 97110-GP; 97116-GP; 97162-GP; 97530-GP; A9270-GY; C1713; G8978-CM-GP; G8979-CM-GP; J0690; J1170; J1644; J2250; J2270; J2370; J2710; J2800; J3010; J3370; P9045